=== PATIENT | female | born 1945 | race Caucasian/White ===

== ENCOUNTER 2019-05-19 00:23 | Observation (INO) | payer MEDICARE, BC ==
[2019-05-19 00:48] LABS: #Basophils 0.1 thou/uL (0.0-0.2); #Eosinphils 0.4 thou/uL (0.0-0.7); #Lymphocytes 1.6 thou/uL (1.20-3.40); #Monocytes 0.8 thou/uL (0.11-0.59); #Neutrophils 5.6 thou/uL (1.40-6.50); %Basophils 0.7 % (0.0-1.0); %Eosinophils 4.7 % (0.0-10.0); %Lymphocytes 19.2 % (21.0-51.0); %Monocytes 9.4 % (0.0-10.0); %Neutrophils 66.1 % (42.0-75.0); Mean Corpuscular HGB CONC 34.5 g/dL (32.0-36.0); Mean Corpuscular Hemoglobin 33.4 pg (27.0-31.0); Mean Corpuscular Volume 96.7 fL (78.0-98.0); Mean Platelet Volume 8.3 fL (7.4-10.4); Platelet Count 166 thou/uL (130-400); RBC Distribution Width 11.7 % (11.5-14.5); Red Blood Cell (RBC) Count 4.19 mill/uL (4.20-5.40); White Blood Cell (WBC) Count 8.4 thou/uL (4.8-10.8)
[2019-05-19 01:22] LABS: ALT (SGPT) 9 U/L (8-55); AST (SGOT) 18 U/L (5-34); Alkaline Phosphatase 90 U/L (40-110); Anion Gap 13 mmol/L (10-20); BUN (Urea Nitrogen) 19 mg/dL (9.8-20.1); Bilirubin, Total 0.4 mg/dL (0.2-1.2); Calc. Creatinine Clearance 0 mL/min (70-130); Calcium 9.3 mg/dL (7.8-10.44); Carbon Dioxide 22 mmol/L (23-31); Chloride 106 mmol/L (98-107); Estimated GFR-MDRD 42; Globulin 2.7 g/dL (2.4-3.5); Glucose 113 mg/dL (83-110); Potassium 3.4 mmol/L (3.5-5.1); Protein, Total 6.7 g/dL (6.0-8.3); Sodium 138 mmol/L (136-145)
[2019-05-19] MEDS ORDERED: Acetaminophen 325 MG TAB PO PRN (02:37)
[2019-05-19] MEDS ORDERED: Potassium Chloride 20 MEQ TAB PO SCH (02:45)
[2019-05-19] MEDS ORDERED: Sodium Chloride 0.9% 1,000 ML IV SCH (03:00)
[2019-05-19 03:57] LABS: #Eosinphils 0.2 thou/uL (0.0-0.7); #Lymphocytes 1.2 thou/uL (1.20-3.40); #Monocytes 0.7 thou/uL (0.11-0.59); #Neutrophils 5.9 thou/uL (1.40-6.50); %Basophils 0.6 % (0.0-1.0); %Eosinophils 2.6 % (0.0-10.0); %Monocytes 8.4 % (0.0-10.0); %Neutrophils 73.5 % (42.0-75.0); Hemoglobin 14.3 g/dL (12.0-16.0); Mean Corpuscular HGB CONC 34.3 g/dL (32.0-36.0); Mean Corpuscular Hemoglobin 33.1 pg (27.0-31.0); Mean Corpuscular Volume 96.6 fL (78.0-98.0); Mean Platelet Volume 8.2 fL (7.4-10.4); Platelet Count 168 thou/uL (130-400); RBC Distribution Width 11.7 % (11.5-14.5); Red Blood Cell (RBC) Count 4.31 mill/uL (4.20-5.40); White Blood Cell (WBC) Count 8.1 thou/uL (4.8-10.8)
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
[2019-05-19 04:20] LABS: Anion Gap 14 mmol/L (10-20); BUN (Urea Nitrogen) 17 mg/dL (9.8-20.1); Calc. Creatinine Clearance 0 mL/min (70-130); Calcium 9.2 mg/dL (7.8-10.44); Carbon Dioxide 22 mmol/L (23-31); Chloride 105 mmol/L (98-107); Estimated GFR-MDRD 49; Glucose 112 mg/dL (83-110); Potassium 3.4 mmol/L (3.5-5.1); Sodium 138 mmol/L (136-145)
[2019-05-19 04:24] LABS: Troponin I 0.035 ng/mL (< 0.028)
[2019-05-19 05:10] VITALS: BMI 26.6
[2019-05-19 07:05] LABS: Troponin I 0.015 ng/mL (< 0.028)
--- NOTE | 2019-05-19 08:48 | ULT ---
EXAM: Carotid ultrasound HISTORY: Syncope COMPARISON: None TECHNIQUE: Multiplanar grayscale and color Doppler images were obtained in a carotid ultrasound. Spec tral analysis of the Doppler waveforms were performed. FINDINGS: Moderate plaque is seen in both common and internal carotid arteries. The Doppler waveforms are normal in the visualized vessels. Peak systolic velocity in the right internal carotid artery 106 cm/s. Peak systolic velocity in the right common carotid artery 78 cm/s. The right ICA/CCA ratio is 1.4. Peak systolic velocity in the left internal carotid artery 121 cm/s. Peak systolic velocity in the left common carotid artery 97 cm/s. The left ICA/CCA ratio is 1.2. Both vertebral arteries demonstrate antegrade flow without focal stenosis IMPRESSION: No evidence of hemodynamically significant stenosis.
--- NOTE | 2019-05-19 08:58 | CT ---
PRELIMINARY REPORT/[facility]/AFTER HOURS PROCEDURE CT HEAD WITHOUT INTRAVENOUS CONTRAST: CLINICAL HISTORY: Pt has a syncopal episode tonight at home Hit back of head on ground No blood thinners mild neck pain . TECHNIQUE: Axial computed tomography images of the head/brain without intravenous contrast. COMPARISON: None provided. FINDINGS: BRAIN: No acute intraparenchymal hemorrhage. No mass lesion. No CT evidence for acute territorial inf arct. No midline shift or extra-axial collection. VENTRICLES: No hydrocephalus. ORBITS: No acute finding. SINUSES AND MASTOIDS: The paranasal sinuses and mastoid air cells are clear. SOFT TISSUES: Left occipital scalp hematoma. No radiopaque foreign body is seen. BONES: No acute skull fracture. IMPRESSION: No acute intracranial abnormality. Left occipital scalp hematoma. No underlying calvarial fracture. ELECTRONICALLY SIGNED BY: Clifton Linton DO May 19, 2019 1:29:59 AM [employer]PER[employer] This report is intended for review by the ordering physician only, in accordance of law. If you recei ve this report in error, please call [facility] at [phone]. FINAL REPORT EMERGENT AFTER HOURS CT BRAIN WITHOUT CONTRAST: FINDINGS/IMPRESSION: I agree with the findings and impression given in the preliminary report per the [facility] phy sician. No evidence of acute intracranial abnormality. CODE QA
--- NOTE | 2019-05-19 09:01 | CT ---
PRELIMINARY REPORT/[facility]/AFTER HOURS PROCEDURE CT CERVICAL SPINE WITHOUT INTRAVENOUS CONTRAST: CLINICAL HISTORY: Pt has a syncopal episode tonight at home Hit back of head on ground No blood thinners mild neck pain . TECHNIQUE: Axial computed tomography images of the cervical spine without intravenous contrast. Sagittal and cor onal reformations performed. COMPARISON: None provided. FINDINGS: BONES: No acute fracture or focal osseous lesion. Mild anterolisthesis of C4 on C5. DISCS / DEGENERATIVE CHANGES: Moderate multilevel degenerative disc disease and uncovertebral joint h ypertrophy and facet arthrosis, most pronounced at C4-C6. SOFT TISSUES: No prevertebral soft tissue swelling. No apical pneumothorax. Bilateral atherosclerotic disease of the carotid vessels. IMPRESSION: No acute cervical spine abnormality. Mild anterolisthesis of C4 on C5 with multilevel cervical spond ylosis, overall mild to moderate burden. ELECTRONICALLY SIGNED BY: Clifton Linton DO May 19, 2019 1:31:44 AM [employer]PER[employer] This report is intended for review by the ordering physician only, in accordance of law. If you recei ve this report in error, please call [facility] at [phone]. FINAL REPORT EMERGENT AFTER HOURS CT CERVICAL SPINE WITHOUT CONTRAST: FINDINGS/IMPRESSION: I agree with the findings and impression given in the preliminary report per the [facility] phy sician. There are degenerative changes of the cervical spine without acute osseous abnormality. CODE QA
--- NOTE | 2019-05-19 10:14 | PDOC.HOSPP ---
- Subjective Encounter Date: 05/19/19 Encounter Time: 10:08 Subjective: less dizzy, no chest pain or sob - Objective Vital Signs & Weight: Vital Signs (12 hours) Temp Pulse Resp BP BP BP Pulse Ox 05/19/19 07:27 97.5 F L 65 16 153/68 H 95 05/19/19 04:51 97.5 F L 67 22 H 167/74 H 119/56 L 156/74 H 96 Weight Weight 127 lb 8 oz Result Diagrams: 05/19/19 03:47 05/19/19 03:47 Hospitalist ROS - Medication Medications: Active Medications Generic Name Dose Route Start Last Admin Trade Name Freq PRN Reason Stop Dose Admin Sodium Chloride 1,000 mls @ 75 mls/hr 05/19/19 03:00 05/19/19 05:49 Normal Saline 0.9% IV 1,000 mls .[id number] REGGIE Administration - Exam General Appearance: awake alert Neck: no JVD Heart: RRR, no murmur Respiratory: CTAB Gastrointestinal: soft, normal bowel sounds Extremities: no edema Hosp A/P (1) Syncope and collapse Code(s): R55 - SYNCOPE AND COLLAPSE Status: Acute (2) CKD (chronic kidney disease), stage III Code(s): N18.3 - CHRONIC KIDNEY DISEASE, STAGE 3 (MODERATE) Status: Chronic (3) HTN (hypertension) Code(s): I10 - ESSENTIAL (PRIMARY) HYPERTENSION Status: Chronic Qualifiers: Hypertension type: essential hypertension Qualified Code(s): I10 - Essential (primary) hypertension (4) PAD (peripheral artery disease) Code(s): I73.9 - PERIPHERAL VASCULAR DISEASE, UNSPECIFIED Status: Chronic - Plan gentle iv fluids hold lasix await echo cont coreg, clonidine
--- NOTE | 2019-05-19 11:04 | RAD ---
PORTABLE SUPINE FRONTAL CHEST RADIOGRAPH: 05/19/2019 HISTORY: Syncope. COMPARISON: 06/07/2016 FINDINGS: Supine imaging provided, limiting assessment for pneumothorax and pleural fluid. Heart and mediastina l contours are grossly unremarkable. Mild diffuse increased linear interstitial density is noted, sta ble. No focal consolidation or alveolar edema. IMPRESSION: Stable appearance of the chest, as described above. No focal consolidation or alveolar edema. POS: [facility]
[2019-05-19] MEDS ORDERED: cloNIDine 0.1 MG TAB PO SCH (16:15)
[2019-05-19] MEDS: Carvedilol 6.25 MG TAB PO SCH (20:48)
[2019-05-19] MEDS ORDERED: cloNIDine 0.2 MG TAB PO SCH (21:00)
[2019-05-20 08:33] VITALS: BP 138/77; TEMP 98
[2019-05-20] MEDS: Carvedilol 6.25 MG TAB PO SCH (08:35)
[2019-05-20] MEDS ORDERED: cloNIDine 0.1 MG TAB PO SCH (09:00)
--- NOTE | 2019-05-20 10:56 | DIS ---
DATE OF ADMISSION: 05/19/2019 DATE OF DISCHARGE: 05/20/2019 PRIMARY CARE PROVIDER: Francie Dugan MD. DISPOSITION: Discharged home. FINAL DIAGNOSES: 1. Syncope. 2. Hypertension. 3. Chronic kidney disease, stage 3. 4. Laceration to scalp. DISCHARGE MEDICATIONS: 1. Her Lasix has been held. 2. Clonidine 0.1 mg in the morning, 0.2 mg at bedtime. 3. Coreg 6.25 mg twice a day. ALLERGIES: TO CODEINE. DIET: Heart healthy. PENDING AT TIME OF DISCHARGE: Nothing. CODE STATUS: Full. CONSULTATIONS: None. PROCEDURES: None. HOSPITAL COURSE: The patient admitted with episode of syncope. Admitting electrocardiogram was unremarkable. Monitor revealed no arrhythmias. Laboratory; initial BUN 19, creatinine 1.26. After stopping Lasix for 2 days, BUN 17, creatinine 1.1. BNP was 343, indeterminate. Cardiac enzymes 0.027, 0.035, 0.015. Echocardiogram, EF 60% to 65% with grade 1 dysfunction. Had some atrial sclerosis, but good valve motions. Brain CT, cervical spine CT, and chest x-ray all unremarkable. Carotid Doppler showed no stenosis. At the time of discharge, she is feeling well. Blood pressure 121/58. No significant orthostatic change with the last series. She is doing well off the diuretic. Despite the modestly elevated blood pressure, there is no modestly elevated BNP. There is no evidence of heart failure with crackles in the lungs. Her chest x-ray, no evidence of CHF, pulmonary vascular congestion, in fact, no cardiomegaly. She is being discharged to follow up with Dr. Francie Dugan in 3 days, off her diuretic. She required no suturing in her scalp. There was no bleeding at its site. Job ID: [id number]
== END 2019-05-20 10:50 | disposition home or self-care (01) ==
LOC: ERS 00:23 → 2SW 01:52
PROVIDERS: ADMIT Internal Medicine; ATTEND Internal Medicine
DX: R55 Syncope and collapse (principal); I12.9 Hypertensive chronic kidney disease with stage 1 through stage 4 chronic kidney disease, or unspecified chronic kidney disease; N18.3 Chronic kidney disease, stage 3 (moderate); S01.01XA Laceration without foreign body of scalp, initial encounter; E87.6 Hypokalemia; N89.8 Other specified noninflammatory disorders of vagina; I73.9 Peripheral vascular disease, unspecified; X58.XXXA Exposure to other specified factors, initial encounter; Z79.899 Other long term (current) drug therapy; Z88.5 Allergy status to narcotic agent; Z87.891 Personal history of nicotine dependence; Z95.828 Presence of other vascular implants and grafts
CPT/HCPCS: 36415; 70450; 71045; 72125; 80053; 83880; 84484; 85025; 93005; 93306; 93880; 96360; 96361; G0378

== ENCOUNTER 2021-10-27 15:50 | Emergency (ER) | payer MEDICARE, BC ==
[~2021-10-27 15:50] MED LIST: Iopamidol-370 76% 500 ML 1 ML ONE
[2021-10-27 16:40] LABS: Prothrombin Time 13.8 sec (12.0-14.7)
[2021-10-27 16:42] LABS: D-Dimer Test 1.89 *mcg/mL (0.27-0.43)
[2021-10-27 16:45] LABS: Hemoglobin 13.4 g/dL (12.0-16.0); Mean Corpuscular HGB CONC 34.2 g/dL (32.0-36.0); Mean Corpuscular Hemoglobin 34.1 pg (27.0-31.0); Mean Corpuscular Volume 99.8 fL (78.0-98.0); Mean Platelet Volume 9.1 fL (7.4-10.4); Platelet Count 181 thou/uL (130-400); RBC Distribution Width 11.5 % (11.5-14.5); Red Blood Cell (RBC) Count 3.91 mill/uL (4.20-5.40); White Blood Cell (WBC) Count 11.2 thou/uL (4.8-10.8)
[2021-10-27 17:03] LABS: Band 8 % (5-11); Lymphocytes 10 % (21-51); MDiff Complete? YES; Monocytes 10 % (0-10); Neutrophil 71 % (42-75); Platelet Morphology Comment Appears Adequate; RBC Morphology Normal; Vacuoles SLIGHT
[2021-10-27 17:06] LABS: ALT (SGPT) 54 U/L (8-55); AST (SGOT) 68 U/L (5-34); Albumin 3.6 g/dL (3.4-4.8); Alkaline Phosphatase 73 U/L (40-110); Anion Gap 18 mmol/L (10-20); BUN (Urea Nitrogen) 14 mg/dL (9.8-20.1); Bilirubin, Total 1.1 mg/dL (0.2-1.2); CRP (Inflammatory) 5.13 mg/dL (= or < 0.5); Calc. Creatinine Clearance 0 mL/min (70-130); Calcium 8.7 mg/dL (7.8-10.44); Carbon Dioxide 22 mmol/L (23-31); Chloride 96 mmol/L (98-107); Estimated GFR 53; Globulin 3.4 g/dL (2.4-3.5); Glucose 107 mg/dL (83-110); Sodium 132 mmol/L (136-145)
[2021-10-27 18:44] LABS: Bacteria/HPF None Seen HPF (None Seen); Bilirubin Negative (Negative); Blood, Urine Negative (Negative); Clarity Clear (Clear); Glucose, Urine (Dipstick) Normal (Negative); Ketone, Urine Trace mg/dL (Negative); Leukocyte 25 Leu/uL (Negative); Nitrite Negative (Negative); Protein, Urine (Dipstick) Negative (Neg-Trace); RBC/HPF 0-3 HPF (0-3); Specific Gravity, Urine 1.014 (1.002-1.036); Squamous Epithelial None Seen HPF (0-3); Urobilinogen Normal mg/dL (Less than 2); WBC/HPF 0-3 HPF (0-3)
== END 2021-10-27 19:23 | disposition home or self-care (01) ==
LOC: ERS 15:50
DX: J18.9 Pneumonia, unspecified organism (principal); R06.00 Dyspnea, unspecified; I10 Essential (primary) hypertension; J44.9 Chronic obstructive pulmonary disease, unspecified; Z20.822 Contact with and (suspected) exposure to COVID-19; B34.9 Viral infection, unspecified
CPT/HCPCS: 71045; 71275; 80053; 83605; 84484; 85025; 85379; 85610; 85730; 86140; 87040; 87086; 93005; 99285; U0003; U0005; 81003; 81015; Q9967

== ENCOUNTER 2021-11-26 11:14 | Observation (INO) | payer BC, MEDICARE ==
[2021-11-26 11:50] LABS: #Eosinphils 0.2 thou/uL (0.0-0.7); #Lymphocytes 1.4 thou/uL (1.20-3.40); #Monocytes 0.8 thou/uL (0.11-0.59); #Neutrophils 9.6 thou/uL (1.40-6.50); %Eosinophils 1.6 % (0.0-10.0); %Monocytes 6.5 % (0.0-10.0); %Neutrophils 79.9 % (42.0-75.0); Hemoglobin 16.9 g/dL (12.0-16.0); Mean Corpuscular HGB CONC 34.3 g/dL (32.0-36.0); Mean Corpuscular Hemoglobin 33.4 pg (27.0-31.0); Mean Corpuscular Volume 97.5 fL (78.0-98.0); Mean Platelet Volume 8.2 fL (7.4-10.4); Platelet Count 265 thou/uL (130-400); Red Blood Cell (RBC) Count 5.04 mill/uL (4.20-5.40)
[2021-11-26] MEDS ORDERED: Ondansetron PF 4 MG/2 ML Vial ONE (11:56)
[2021-11-26 12:16] LABS: ALT (SGPT) 41 U/L (8-55); AST (SGOT) 48 U/L (5-34); Albumin 3.9 g/dL (3.4-4.8); Alkaline Phosphatase 100 U/L (40-110); Anion Gap 16 mmol/L (10-20); BUN (Urea Nitrogen) 25 mg/dL (9.8-20.1); Calc. Creatinine Clearance 0 mL/min (70-130); Calcium 9.5 mg/dL (7.8-10.44); Carbon Dioxide 30 mmol/L (23-31); Chloride 86 mmol/L (98-107); Estimated GFR 39; Globulin 3.6 g/dL (2.4-3.5); Glucose 141 mg/dL (83-110); Protein, Total 7.5 g/dL (5.8-8.1); Sodium 129 mmol/L (136-145)
[2021-11-26 12:27] LABS: Potassium 2.8 mmol/L (3.5-5.1)
[2021-11-26 12:33] LABS: CKMB 4.1 ng/mL (0-6.6)
[2021-11-26 12:36] LABS: Lipase 16 U/L (8-78); Magnesium 1.8 mg/dL (1.6-2.6)
[2021-11-26] MEDS ORDERED: Potassium Chloride 20 MEQ TAB ONE (12:43)
[2021-11-26 13:08] LABS: SARS-CoV-2 NAA Rapid Test DETECTED (NotDetected)
[2021-11-26 13:53] LABS: Bilirubin Negative (Negative); Blood, Urine Negative (Negative); Clarity Clear (Clear); Glucose, Urine (Dipstick) Normal (Negative); Ketone, Urine Negative (Negative); Leukocyte Negative Leu/uL (Negative); Nitrite Negative (Negative); Protein, Urine (Dipstick) Negative (Neg-Trace); Specific Gravity, Urine 1.024 (1.002-1.036); Urobilinogen Normal mg/dL (Less than 2)
[2021-11-26] MEDS ORDERED: Iopamidol-370 76% 500 ML 1 ML ONE (13:58)
[2021-11-26] MEDS ORDERED: Electrolyte Replacement Protocol 1 EACH FS SCH (15:30)
[2021-11-26] MEDS ORDERED: Pharmacy to Dose REMDESIVIR PO SCH (15:31)
[2021-11-26] MEDS ORDERED: Ondansetron ODT 4 MG TAB PO PRN (15:32)
[2021-11-26] MEDS ORDERED: Acetaminophen 325 MG TAB PO PRN (15:32)
[2021-11-26] MEDS ORDERED: Albuterol 200 PUFF (6.7GM INHALER) INH PRN (15:35)
[2021-11-26] MEDS ORDERED: Sodium Chloride 0.9% 1,000 ML IV SCH (15:45)
[2021-11-26 16:09] LABS: Troponin I 0.047 ng/mL (< 0.028)
[2021-11-26] MEDS ORDERED: Potassium Chloride 20 MEQ TAB PO SCH ×2 (16:15→17:00)
[2021-11-26] MEDS ORDERED: REMDESIVIR 200 MG in Sodium Chloride 0.9% 250 ML 210 ML IV SCH (16:30)
[2021-11-26 18:48] LABS: Troponin I 0.047 ng/mL (< 0.028)
[2021-11-26] MEDS: Benzonatate 100 MG CAP PO PRN (20:09)
[2021-11-26] MEDS: Atorvastatin Calcium 20 MG TAB PO SCH (20:09)
[2021-11-26] MEDS: Cholecalciferol 1,000 UNITS (25 MCG) TAB PO SCH (20:09)
[2021-11-26 22:18] LABS: CKMB 4.4 ng/mL (0-6.6)
[2021-11-26] MEDS: hydrALAZINE 20 MG/ML VIAL SLOW IVP PRN (23:31)
[2021-11-27 00:09] LABS: Anion Gap 16 mmol/L (10-20); BUN (Urea Nitrogen) 19 mg/dL (9.8-20.1); Calc. Creatinine Clearance 33 mL/min (70-130); Calcium 8.5 mg/dL (7.8-10.44); Carbon Dioxide 23 mmol/L (23-31); Chloride 97 mmol/L (98-107); Estimated GFR 54; Glucose 95 mg/dL (83-110); Potassium 3.7 mmol/L (3.5-5.1); Sodium 132 mmol/L (136-145)
[2021-11-27] MEDS: hydrALAZINE 20 MG/ML VIAL SLOW IVP PRN ×2 (03:24→10:00)
[2021-11-27] MEDS: Benzonatate 100 MG CAP PO PRN (03:30)
[2021-11-27 04:25] LABS: #Eosinphils 0.3 thou/uL (0.0-0.7); #Monocytes 1.3 thou/uL (0.11-0.59); #Neutrophils 6.1 thou/uL (1.40-6.50); %Basophils 0.2 % (0.0-1.0); %Eosinophils 3.3 % (0.0-10.0); %Lymphocytes 20.6 % (21.0-51.0); %Monocytes 13.2 % (0.0-10.0); %Neutrophils 62.6 % (42.0-75.0); Hemoglobin 14.3 g/dL (12.0-16.0); Mean Corpuscular HGB CONC 34.1 g/dL (32.0-36.0); Mean Corpuscular Hemoglobin 34.2 pg (27.0-31.0); Mean Platelet Volume 8.5 fL (7.4-10.4); Platelet Count 195 thou/uL (130-400); RBC Distribution Width 11.9 % (11.5-14.5); Red Blood Cell (RBC) Count 4.18 mill/uL (4.20-5.40); White Blood Cell (WBC) Count 9.7 thou/uL (4.8-10.8)
[2021-11-27 04:37] LABS: Anion Gap 14 mmol/L (10-20); BUN (Urea Nitrogen) 17 mg/dL (9.8-20.1); Calc. Creatinine Clearance 33 mL/min (70-130); Calcium 8.5 mg/dL (7.8-10.44); Carbon Dioxide 25 mmol/L (23-31); Cardiac Risk 3.7 (Less than 4.5); Chloride 98 mmol/L (98-107); Cholesterol 152 mg/dl (< 200 Desired); Estimated GFR 56; Glucose 84 mg/dL (83-110); HDL Cholesterol 41 mg/dL (>60 Neg Risk); LDL Cholesterol, Calculated 93 mg/dL; Magnesium 1.7 mg/dL (1.6-2.6); Potassium 3.4 mmol/L (3.5-5.1); Sodium 134 mmol/L (136-145); Triglycerides 89 mg/dL (Less than 150)
[2021-11-27 04:59] LABS: CKMB 6.3 ng/mL (0-6.6)
[2021-11-27 08:18] VITALS: BMI 21.2
[2021-11-27] MEDS ORDERED: Magnesium 2 GM/50 ML(in water) 2 GM in Premix Bag 1 BAG IVPB SCH (09:00)
[2021-11-27] MEDS ORDERED: Aspirin 81 mg Enteric Coated Tablet PO SCH (09:00)
[2021-11-27] MEDS: Aspirin 81 mg Enteric Coated Tablet PO SCH (09:45)
[2021-11-27] MEDS: Zinc Sulfate 220 MG CAP PO SCH (09:45)
[2021-11-27] MEDS: Dexamethasone 4 mg/ml Vial SLOW IVP SCH (09:46)
[2021-11-27] MEDS: Ascorbic Acid 500 mg Chewable Tablet PO SCH (09:46)
[2021-11-27] MEDS: Enoxaparin Sodium 30 MG/0.3 ML SYRINGE SC SCH (09:46)
[2021-11-27] MEDS: Potassium Chloride 20 MEQ in Premix Bag 1 BAG IVPB SCH ×2 (10:03→12:34)
[2021-11-27] MEDS ORDERED: Amlodipine 10 MG TAB PO SCH (13:15)
[2021-11-27] MEDS ORDERED: REMDESIVIR 100 MG in Sodium Chloride 0.9% 250 ML 230 ML IV SCH (21:00)
[2021-11-27] MEDS: Atorvastatin Calcium 20 MG TAB PO SCH (21:22)
[2021-11-27] MEDS: Cholecalciferol 1,000 UNITS (25 MCG) TAB PO SCH (21:22)
[2021-11-28] MEDS: hydrALAZINE 20 MG/ML VIAL SLOW IVP PRN (04:10)
[2021-11-28 04:16] LABS: #Eosinphils 0.1 thou/uL (0.0-0.7); #Lymphocytes 1.2 thou/uL (1.20-3.40); #Monocytes 0.7 thou/uL (0.11-0.59); #Neutrophils 9.3 thou/uL (1.40-6.50); %Basophils 0.1 % (0.0-1.0); %Eosinophils 0.5 % (0.0-10.0); %Lymphocytes 10.7 % (21.0-51.0); %Monocytes 6.2 % (0.0-10.0); %Neutrophils 82.5 % (42.0-75.0); Hemoglobin 14.9 g/dL (12.0-16.0); Mean Corpuscular HGB CONC 33.9 g/dL (32.0-36.0); Mean Corpuscular Hemoglobin 34.1 pg (27.0-31.0); Mean Platelet Volume 8.2 fL (7.4-10.4); Platelet Count 234 thou/uL (130-400); RBC Distribution Width 12.3 % (11.5-14.5); Red Blood Cell (RBC) Count 4.36 mill/uL (4.20-5.40); White Blood Cell (WBC) Count 11.3 thou/uL (4.8-10.8)
[2021-11-28 04:40] LABS: Anion Gap 14 mmol/L (10-20); BUN (Urea Nitrogen) 16 mg/dL (9.8-20.1); Calc. Creatinine Clearance 36 mL/min (70-130); Calcium 8.8 mg/dL (7.8-10.44); Carbon Dioxide 22 mmol/L (23-31); Chloride 98 mmol/L (98-107); Estimated GFR 62; Glucose 111 mg/dL (83-110); Potassium 3.8 mmol/L (3.5-5.1); Sodium 130 mmol/L (136-145)
[2021-11-28 04:41] LABS: ALT (SGPT) 37 U/L (8-55); AST (SGOT) 43 U/L (5-34)
[2021-11-28] MEDS ORDERED: Amlodipine 5 MG TAB PO SCH (09:00)
[2021-11-28] MEDS: Dexamethasone 4 mg/ml Vial SLOW IVP SCH (10:33)
[2021-11-28] MEDS: Ascorbic Acid 500 mg Chewable Tablet PO SCH (10:34)
[2021-11-28] MEDS: Aspirin 81 mg Enteric Coated Tablet PO SCH (10:35)
[2021-11-28] MEDS: Zinc Sulfate 220 MG CAP PO SCH (10:35)
[2021-11-28] MEDS: Enoxaparin Sodium 30 MG/0.3 ML SYRINGE SC SCH (10:35)
[2021-11-28 10:47] VITALS: TEMP 98.3
[2021-11-28] MEDS ORDERED: Carvedilol 6.25 MG TAB PO SCH (14:00)
[2021-11-28 14:24] VITALS: BP 146/73
== END 2021-11-28 15:35 | disposition home or self-care (01) ==
LOC: ERS 11:14 → 2NO 12:58
PROVIDERS: ADMIT Internal Medicine; ATTEND Internal Medicine
DX: R55 Syncope and collapse (principal); I65.21 Occlusion and stenosis of right carotid artery; U07.1 COVID-19; J44.9 Chronic obstructive pulmonary disease, unspecified; I12.9 Hypertensive chronic kidney disease with stage 1 through stage 4 chronic kidney disease, or unspecified chronic kidney disease; N18.30 Chronic kidney disease, stage 3 unspecified; E86.0 Dehydration; E87.6 Hypokalemia; E87.1 Hypo-osmolality and hyponatremia; K80.20 Calculus of gallbladder without cholecystitis without obstruction; I08.3 Combined rheumatic disorders of mitral, aortic and tricuspid valves; Z79.82 Long term (current) use of aspirin; Z79.899 Other long term (current) drug therapy; Z88.5 Allergy status to narcotic agent; Z90.81 Acquired absence of spleen; Z95.820 Peripheral vascular angioplasty status with implants and grafts
CPT/HCPCS: 70450; 71045; 74177; 80048 ×3; 80061; 81003; 82553 ×2; 82962; 83605; 83690; 83735 ×2; 83880; 84450; 84460; 84484 ×3; 85025 ×2; 86140; 86850; 86900; 86901; 87040; 87086; 93005; 93306; 93880; 96372 ×2; 96375 ×3; 96376; G0378 ×4; J0248 ×2; U0002; 36415; 36416; 51701; 80053; 84443; 96361; 96374; J0360; J1100; J1650; J2405; J3475; J3480; J7050; Q9967